=== PATIENT | male | born 1995 | race Caucasian/White ===

== ENCOUNTER 2017-10-08 09:45 | Emergency (ER) | payer SELFPAY ==
[~2017-10-08] VITALS: Ht 182.9 cm; Wt 75.3 kg
[2017-10-08 09:48] VITALS: BP 129/79
== END 2017-10-08 10:57 | disposition left against medical advice (07) ==
LOC: EME 09:45
DX: M54.5 Low back pain (principal); Z53.21 Procedure and treatment not carried out due to patient leaving prior to being seen by health care provider